=== PATIENT | male | born 1970 | race Caucasian/White ===

== ENCOUNTER 2018-10-13 13:31 | Emergency (ER) | payer MEDICAID ==
[~2018-10-13] VITALS: Ht 167.6 cm; Wt 72.6 kg
[2018-10-13 13:45] VITALS: Ht 167.6 cm; Wt 72.6 kg
[2018-10-13] MEDS ORDERED: IBUPROFEN 600 MG TAB PO ONE (15:30)
[2018-10-13] MEDS ORDERED: TRAM50TA2 PO (16:50)
[2018-10-13] MEDS ORDERED: IBUP-1542 PO (16:50)
--- NOTE | 2018-10-13 16:53 | ERD ---
ER Documentation Chief Complaint Chief Complaint LEFT SHOULDER PAIN/INJURY HPI This 47-year-old male presents with left shoulder pain over the last week. He had a history of previous injury which resolved. He feels like it is dislocated although he denies any trauma. He has restricted range of motion due to pain but no fevers, weakness. ROS All systems reviewed and are negative except as per history of present illness. Medications Home Meds Active Scripts Tramadol HCl (Tramadol HCl) 50 Mg Tablet, 50 MG PO Q4 PRN for PAIN, #20 TAB Prov:JANINE TOLENTINO MD 10/13/18 Ibuprofen* (Motrin*) 600 Mg Tab, 600 MG PO Q6, #30 TAB Prov:JANINE TOLENTINO MD 10/13/18 Allergies Allergies: Coded Allergies: No Known Allergy (Unverified , 10/13/18) PMhx/Soc Medical and Surgical Hx: pt denies Medical Hx, pt denies Surgical Hx Hx Alcohol Use: Yes Hx Substance Use: Yes Hx Tobacco Use: Yes Smoking Status: Current every day smoker FmHx Family History: No diabetes, No coronary disease, No other Physical Exam Vitals Vital Signs Date Temp Pulse Resp B/P (MAP) Pulse Ox O2 O2 Flow FiO2 Time Delivery Rate 10/13/18 99.0 95 19 151/92 96 13:45 (111) Physical Exam Const: No acute distress Head: Atraumatic Eyes: Normal Conjunctiva ENT: Normal External Ears, Nose and Mouth. Neck: Full range of motion. No meningismus. Resp: Clear to auscultation bilaterally Cardio: Regular rate and rhythm, no murmurs Abd: Soft, non tender, non distended. Normal bowel sounds Skin: No petechiae or rashes Back: No midline or flank tenderness Ext: No cyanosis, or edema. Tenderness left rotator cuff capsule. No deformities. Restricted range of motion to extension and flexion and abduction due to pain. Pulses 2+ distally. Neur: Awake and alert Psych: Normal Mood and Affect Results 24 hrs Current Medications Medications Dose Sig/Jaden Start Time Status Last (Trade) Ordered Route PRN Stop Time Admin Dose Reason Admin Ibuprofen 600 mg ONCE ONCE 10/13/18 DC 10/13/18 (Motrin) PO 15:30 15:26 10/13/18 15:31 Procedures/MDM X-ray left shoulder 3V Interpreted by me: Bones: No fracture Joints: No dislocation Foreign body: None patient-normal left shoulder x-ray Presents with left shoulder pain for last week. Symptoms consistent with rotator cuff tendinitis or strain. Is no signs of ischemia, deficits, infection. There is no evidence of fracture, dislocation. We discharged home with recommendations to apply ice, perform range of motion to prevent stiffness, and follow-up with primary doctor and orthopedist for further evaluation and treatment. Patient may benefit from elective outpatient steroid injection. Will treat with tramadol, ibuprofen, and as directed. The patient was stable with no new complaints during the ER course. Clinically, there is no current evidence to suggest meningitis, sepsis, acute abdomen, pneumonia, stroke, acute coronary syndrome, pulmonary embolism, aortic dissection or any other emergent condition appearing to require further evaluation or hospitalization. Patient counseled regarding my diagnostic impression and care plan. Prior to discharge all questions answered. Pt agrees with treatment plan and understands strict return precautions. Pt is instructed to follow up with primary care provider within 24-48 hours. Precautionary instructions provided including instructions to return to the ER if not improving or for any worsening or changing symptoms or concerns. The patient's blood pressure was elevated (>120/80) but appears stable without evidence of hypertension emergency or urgency. The patient was counseled about the risks of hypertension and urged to pursue outpatient monitoring and therapy within a week with their primary care physician. I discussed the findings with the patient. I advised the patient to follow-up with the primary physician in about 1-2 days, sooner if needed and return if any concern. Departure Diagnosis: Primary Impression: Shoulder pain Chronicity: acute Laterality: unspecified laterality Qualified Codes: M25.519 - Pain in unspecified shoulder Additional Impression: Elevated blood pressure reading Condition: Stable Patient Instructions: Shoulder Pain (Uncertain Cause) Referrals: NO PRIMARY,CARE PHYSICIAN (PCP) Additional Instructions: X-ray read as normal. Recommend ice and range of motion to prevent stiffness. Recommend orthopedist evaluation for further treatment. Recheck otherwise for fevers, new worsening symptoms. JANINE TOLENTINO MD Oct 13, 2018 16:53
[2018-10-13 17:08] VITALS: BP 165/99; PULSE 70; RESP 18
== END 2018-10-13 17:09 | disposition home or self-care (01) ==
LOC: FTE 13:31
DX: M25.512 Pain in left shoulder (principal); F17.210 Nicotine dependence, cigarettes, uncomplicated; R03.0 Elevated blood-pressure reading, without diagnosis of hypertension
CPT/HCPCS: 73030; Z7502